=== PATIENT | male | born 1940 | race Caucasian/White ===

== ENCOUNTER 2019-08-15 16:57 | Emergency (ER) | payer MEDICARE ==
[2019-08-15 18:03] LABS: #Basophils 0.1 thou/uL (0.0-0.2); #Eosinphils 0.1 thou/uL (0.0-0.7); #Lymphocytes 1.5 thou/uL (1.20-3.40); #Monocytes 0.7 thou/uL (0.11-0.59); #Neutrophils 3.1 thou/uL (1.40-6.50); %Eosinophils 1.5 % (0.0-10.0); %Lymphocytes 27.4 % (21.0-51.0); %Monocytes 12.3 % (0.0-10.0); %Neutrophils 57.9 % (42.0-75.0); Hemoglobin 12.5 g/dL (14.0-18.0); Mean Corpuscular Hemoglobin 33.9 pg (27.0-31.0); Mean Corpuscular Volume 99.5 fL (78.0-98.0); Platelet Count 228 thou/uL (130-400); RBC Distribution Width 13.7 % (11.5-14.5); Red Blood Cell (RBC) Count 3.69 mill/uL (4.70-6.10); White Blood Cell (WBC) Count 5.3 thou/uL (4.8-10.8)
== END 2019-08-16 00:52 | disposition short-term general hospital (02) ==
LOC: ERS 16:57
DX: C78.7 Secondary malignant neoplasm of liver and intrahepatic bile duct (principal); E11.9 Type 2 diabetes mellitus without complications; Z87.891 Personal history of nicotine dependence
CPT/HCPCS: 36415; 85025; 99285

== ENCOUNTER 2020-04-07 16:42 | Inpatient (IN) | payer MEDICARE, OTHER ==
[~2020-04-07 16:42] MED LIST: Heparin 10,000 UNITS/ 10 ML VIAL ONE
[2020-04-07] MEDS ORDERED: methylPREDNISolone Sod Succ/PF 125 MG/2 ML VIAL ONE (17:16)
[2020-04-07] MEDS ORDERED: Furosemide 40 MG/4 ML VIAL ONE (17:16)
[2020-04-07] MEDS ORDERED: Albuterol Sulfate 2.5 mg/0.5 ml Neb ONE (17:17)
--- NOTE | 2020-04-07 17:43 | RAD ---
Exam: Chest one view HISTORY:Respiratory distress, starting 3 days ago. Diminished lung sounds Comparison: 04/06/2020 FINDINGS: Limited evaluation due to body habitus and portable technique Right-sided transvenous pacemaker terminates over the region right atrium and right ventricle. Cardiac silhouette:Cardiomegaly Aorta: Unremarkable Pulmonary vessels: Normal Costophrenic angles: Bilateral pleural effusions, right greater than left. LUNGS: Scattered interstitial and alveolar opacities in the lung parenchyma. Pneumothorax: Limited evaluation due to supine position. Osseous abnormalities: None IMPRESSION: 1. Possible congestive heart failure. Superimposed pneumonia and/or aspiration cannot be excluded. 2. Better evaluation of the 2 view chest radiograph is recommended. Limited evaluation the right para tracheal region
[2020-04-07 17:48] LABS: Hemoglobin 10.4 g/dL (14.0-18.0); Mean Corpuscular HGB CONC 31.5 g/dL (32.0-36.0); Mean Corpuscular Hemoglobin 33.3 pg (27.0-31.0); Platelet Count 125 thou/uL (130-400); RBC Distribution Width 19.1 % (11.5-14.5); Red Blood Cell (RBC) Count 3.12 mill/uL (4.70-6.10); White Blood Cell (WBC) Count 5.8 thou/uL (4.8-10.8)
[2020-04-07] MEDS ORDERED: cefTRIAXone\\ROCEPHIN 2 GM VIAL ONE (18:04)
[2020-04-07 18:08] LABS: Anisocytosis SLIGHT = 6-15 cells (100X) (0-5/hpf); Band 13 % (5-11); Burr Cells SLIGHT = 2-5 cells (100X) (0-1/hpf); Eosinophils 2 % (0-10); Lymphocytes 9 % (21-51); MDiff Complete? YES; Macrocytosis SLIGHT = 6-15 cells (100X) (0-5/hpf); Monocytes 10 % (0-10); Neutrophil 65 % (42-75); Nucleated RBC 2 % (0); Platelet Morphology Comment Appears Decreased; Poikilocytosis SLIGHT = 6-15 cells (100X) (0-5/hpf); Polychromasia SLIGHT = 2-3 cells (100X) (0-2/hpf); Reactive Lymphocytes 1 % (0-10); Target Cells SLIGHT = 2-5 cells (100X) (0-1/hpf)
[2020-04-07 18:14] LABS: ALT (SGPT) 63 U/L (8-55); AST (SGOT) 405 U/L (5-34); Albumin 1.7 g/dL (3.4-4.8); Alkaline Phosphatase 234 U/L (40-110); Anion Gap 16 mmol/L (10-20); BUN (Urea Nitrogen) 89 mg/dL (8.4-25.7); Bilirubin, Total 6.3 mg/dL (0.2-1.2); Calc. Creatinine Clearance 0 mL/min (70-130); Calcium 7.8 mg/dL (7.8-10.44); Carbon Dioxide 21 mmol/L (23-31); Chloride 99 mmol/L (98-107); Estimated GFR-MDRD 21; Globulin 3.2 g/dL (2.4-3.5); Glucose 103 mg/dL (83-110); Protein, Total 4.9 g/dL (5.8-8.1); Sodium 129 mmol/L (136-145)
[2020-04-07 18:21] LABS: Potassium 6.8 mmol/L (3.5-5.1)
[2020-04-07] MEDS ORDERED: Furosemide 20 MG/2 ML VIAL ONE (19:01)
[2020-04-07] MEDS ORDERED: Sodium Bicarb 50 MEQ/50 ML VIAL ONE (19:02)
[2020-04-07] MEDS ORDERED: Dextrose 50% Abboject 50 ML SYRINGE ONE (19:02)
[2020-04-07 19:04] LABS: Bilirubin 1+ (Negative); Blood, Urine Trace (Negative); Clarity Turbid (Clear); Glucose, Urine (Dipstick) Normal (Negative); Ketone, Urine Trace mg/dL (Negative); Leukocyte Negative Leu/uL (Negative); Nitrite Negative (Negative); Protein, Urine (Dipstick) 50 mg/dL (Neg-Trace); RBC/HPF 0-3 HPF (0-3); Specific Gravity, Urine 1.018 (1.002-1.036); Squamous Epithelial 0-3 HPF (0-3)
[2020-04-07] MEDS ORDERED: INSULIN REGULAR IN 0.9 % NACL 100 UNIT/100 ML BAG ONE (19:06)
[2020-04-07] MEDS ORDERED: Calcium Gluc 4.6 MEQ/10 ML (100 MG/ML) ONE (19:07)
[2020-04-07] MEDS ORDERED: Sodium Bicarb 50 MEQ/50 ML Abboject 8.4% SYRINGE ONE (19:07)
[2020-04-07] MEDS ORDERED: Insulin Regular 300 UNITS/3 ML VIAL ONE (19:09)
[2020-04-07 19:11] LABS: Bacteria/HPF None Seen HPF (None Seen); Transitional Epithelial 0-3 HPF (None Seen)
[2020-04-07 19:12] LABS: Calcium Oxalate Crystals Rare HPF (None Seen)
[2020-04-07] MEDS ORDERED: Vancomycin 1 GM/200 ML BAG ONE (19:37)
[2020-04-07] MEDS ORDERED: Acetaminophen 325 MG TAB PO PRN (19:41)
[2020-04-07] MEDS ORDERED: Guaifenesin DM 100-10/5 ML UDCUP PO PRN (19:41)
[2020-04-07] MEDS ORDERED: cloNIDine 0.1 MG TAB PO PRN (19:41)
[2020-04-07] MEDS ORDERED: Promethazine HCl 12.5 MG in Sodium Chloride 0.9% 50 ML IVPB PRN (19:41)
[2020-04-07] MEDS ORDERED: Ondansetron PF 4 MG/2 ML Vial IVP PRN (19:41)
[2020-04-07] MEDS ORDERED: hydrALAZINE 20 MG/ML VIAL SLOW IVP PRN (19:41)
[2020-04-07] MEDS ORDERED: Labetalol HCl 100 MG/20 ML VIAL SLOW IVP PRN (19:41)
--- NOTE | 2020-04-07 19:51 | PDOC.HHP ---
Hospitalist HPI - History of Present Illness Shortness of breath History of Present Illness: Patient is a 80 year old male with PMH CKD who presents to ED for shortness of breath and chest pain, sent here from [facility]. Patient reports worsening SOB x 3 days. EMS called last night, patient found to be hypotensive and hypoxic to 80s. Given a breathing treatment and placed on NRB. BP was 70s/40s. COVID test 3 days ago negative. In ED, labs concerning for K 6.8, Cr 12. Nephrology consulted, Dr Anaya recommended immediate HD, Dr Looney consulted for HD cath placement. Patient admitted to [facility], started on HD, required bipap before HD due to increased work of breathing. He did have some chest pain per ED notes but denies that now, CHF reported in history of chart review. Hospitalist ROS - Review of Systems Constitutional: reports: weakness, malaise. denies: fever, chills, sweats, other Eyes: denies: pain, vision change, conjunctivae inflammation, eyelid inflammation, redness, other ENT: denies: ear pain, ear discharge, nose pain, nose discharge, nose congestion, mouth pain, mouth swelling, throat pain, throat swelling, other Respiratory: reports: cough, shortness of breath. denies: dry, hemoptysis, SOB with excertion, pleuritic pain, sputum, wheezing, other Cardiovascular: reports: chest pain. denies: palpitations, orthopnea, paroxysmal noc. dyspnea, edema, light headedness, other Gastrointestinal: denies: nausea, vomiting, abdominal pain, diarrhea, constipation, melena, hematochezia, other Genitourinary: denies: dysuria, frequency, incontinence, hematuria, retention, other Musculoskeletal: denies: neck pain, shoulder pain, arm pain, back pain, hand pain, leg pain, foot pain, other Skin: reports: lesions (skin tears elbow). denies: rash, hudson, bruising, other Neurological: denies: weakness, numbness, incoordination, change in speech, confusion, seizures, other All other systems reviewed; all pertinent +/- noted in HPI/Subj - Medication Medications: reviewed, see ED documents for medication list Hospitalist History - Past Medical History Other Medical History: Flu vaccine up to date Tetanus not up to date Pneumococcal vaccine not up to date Notes: LUNG CANCER 2015, VOCAL CORD CANCER 2009, Past medical history includes cardiac history, Treated with a pacemaker, since 2019, Past medical history includes history of diabetes, Type II. LIVER TUMOR, COPD, DIABETIC PERIPHERAL NEUROPATHY, CKD, HYPERKALEMIA, HYPONATREMIA, HTN, OA, DECUBITS ULCER, SECOND DEGREE HEART BLOCK- MOBITZ II. - Past Surgical History Other Surgical History: BACK SX, KIDNEY STONE REMOVAL, LEFT KNEE REPLACEMENT 10 YEARS AGO. - Family History Family History: reports: no pertinent history - Social History Smoking Status: Former smoker Alcohol: reports: None Drugs: reports: none - Exam General - other findings: confused, no distress, on bipap Eye: PERRL, anicteric sclera ENT: normocephalic atraumatic, no oropharyngeal lesions, moist mucosa Neck: supple, symmetric, no JVD, no thyromegaly, no lymphadenopathy, no carotid bruit Heart: RRR, no murmur, no gallops, no rubs, normal peripheral pulses Respiratory: CTAB, no wheezes, no rales, normal chest expansion, no tachypnea, normal percussion, rhonchi, wheezes Gastrointestinal: soft, non-tender, non-distended, normal bowel sounds, no palpable masses, no hepatomegaly, no splenomegaly, no bruit Extremities: no cyanosis, no clubbing, no edema Skin: normal turgor, no lesions, no rashes Neurological: cranial nerve grossly intact, normal sensation to touch, no weakness, no focal deficits, no new deficit Musculoskeletal: normal tone, normal strength, no muscle wasting Psychiatric: normal affect, normal behavior, A&O x 3 Hospitalist Results - Labs Result Diagrams: 04/08/20 05:15 04/08/20 05:15 Lab results: WBC 5.8 thou/uL (4.8-10.8) 04/07/20 17:24 Hgb 10.4 g/dL (14.0-18.0) L 04/07/20 17:24 Hct 33.0 % (42.0-52.0) L 04/07/20 17:24 MCV 106.0 fL (78.0-98.0) H 04/07/20 17:24 Plt Count 125 thou/uL (130-400) L 04/07/20 17:24 Band Neuts % (Manual) 13 % (5-11) H 04/07/20 17:24 Sodium 129 mmol/L (136-145) L 04/07/20 17:24 Potassium 6.8 mmol/L (3.5-5.1) H* 04/07/20 17:24 Chloride 99 mmol/L (98-107) 04/07/20 17:24 Carbon Dioxide 21 mmol/L (23-31) L 04/07/20 17:24 BUN 89 mg/dL (8.4-25.7) H 04/07/20 17:24 Creatinine 2.96 mg/dL (0.7-1.3) H 04/07/20 17:24 Glucose 103 mg/dL (83-110) 04/07/20 17:24 Lactic Acid 1.7 mmol/L (0.5-2.2) 04/07/20 17:24 Calcium 7.8 mg/dL (7.8-10.44) 04/07/20 17:24 Total Bilirubin 6.3 mg/dL (0.2-1.2) H 04/07/20 17:24 AST 405 U/L (5-34) H 04/07/20 17:24 ALT 63 U/L (8-55) H 04/07/20 17:24 Alkaline Phosphatase 234 U/L (40-110) H 04/07/20 17:24 Troponin I 0.016 ng/mL (< 0.028) 04/07/20 17:24 B-Natriuretic Peptide 1374.1 pg/mL (0-100) H 04/07/20 17:24 Serum Total Protein 4.9 g/dL (5.8-8.1) L 04/07/20 17:24 Albumin 1.7 g/dL (3.4-4.8) L 04/07/20 17:24 Urine Ketones Trace mg/dL (Negative) A 04/07/20 18:40 Urine Blood Trace (Negative) A 04/07/20 18:40 Urine Nitrite Negative (Negative) 04/07/20 18:40 Ur Leukocyte Esterase Negative Korina/uL (Negative) 04/07/20 18:40 Urine RBC 0-3 HPF (0-3) 04/07/20 18:40 Urine WBC 4-6 HPF (0-3) A 10/05/20 18:40 Ur Squamous Epith Cells 0-3 HPF (0-3) 04/07/20 18:40 Urine Bacteria None Seen HPF (None Seen) 04/07/20 18:40 Additional comment: VITAL SIGNS Mon Apr 07, 2020 20:30 DEVIN Sarah, Sofya BP: 107/49 MAP: 68 Pulse: 80 Resp: 17 O2 sat: 100 on (Non Rebreather) Time: 04/07/2020 20:30. - EKG Interpretation EK bpm, v paced. QTc 538. no acute ST changes. peaked t waves. Hospitalist H&P A/P - Plan Plan: Patient is a 80 year old male with PMH CKD who presents to ED for shortness of breath and chest pain, [facility]. # acute renal failure on CKD # hyperkalemia - due to renal failure # COPD exacerbation and possible pneumonia # CHF exacerbation - admit to IMCU - BIPAP as needed until fluid removed - continue vancomycin/cefepime - consult pulmonary, nephrology, appreciate expertise - dopamine until more stable, getting intermittent low BPs - continue nebs/steroids - echo - follow cultures - started on HD last night, after access placed by surgery, K improved now, follow up labs.
[2020-04-07] MEDS ORDERED: Furosemide 100 MG/10 ML VIAL SLOW IVP SCH (20:00)
[2020-04-07] MEDS ORDERED: Lidocaine 1% w/Epinephrine 1:100K 20 ML VIAL ONE (20:08)
--- NOTE | 2020-04-07 20:42 | CON ---
DATE OF CONSULTATION: REASON FOR CONSULTATION: Hyperkalemia. HISTORY OF PRESENT ILLNESS: This is a very pleasant 80-year-old gentleman, who is on BiPAP right now, had had a few days of progressive swelling all over his body with increasing dyspnea. His potassium was 6.2 early this morning and around 5:30 p.m., it was 6.8, so I was consulted for further evaluation and workup. The patient is very somnolent and can give no detailed history. The patient has been given treatment for hyperkalemia. PAST MEDICAL HISTORY: Significant for liver cancer with lung cancer and liver biopsy was not performed. The patient has received immunotherapy and chemotherapy. The patient has had massive weight loss. Had a history of pacemaker, diabetes mellitus, chronic debility, history of kidney stone, and history of left knee replacement. SOCIOECONOMIC HISTORY: No alcohol or drug abuse. FAMILY HISTORY: Negative for ESRD. ALLERGIES: REVIEWED. REVIEW OF SYSTEMS: A 15-point review of system could not be performed due to the patient is very somnolent. PHYSICAL EXAMINATION: GENERAL: The patient is somnolent. VITAL SIGNS: Afebrile, pulse 94, breathing at 16, blood pressure was 127/61. At the time of my examination, the blood pressure was in the 90 systolic and 40s diastolic. HEENT: Head normocephalic and atraumatic. Eyes intact, no ulcers. Nose intact, no ulcers. Ears intact, no ulcers. Neck: Supple. No JVD. Chest: Symmetrical and clear. Cardiovascular: Shows S1 and S2, no rub, no murmur. Gastrointestinal: Abdomen is soft, bowel sounds positive. Extremities: Show no ulcers. The patient has 4+ edema including scrotal edema. Skin: Shows no rash or petechiae. Musculoskeletal: Shows no joint swelling or stiffness. Genitourinary: Shows no Carcamo or CVA tenderness. Neurologic: Motor intact. Cranial nerves intact. LABORATORY DATA: Reviewed. ASSESSMENT AND PLAN: Acute kidney injury with chronic kidney disease with multifactorial in the setting of hypertension and congestive heart failure. I will plan to do urgent dialysis. Hyperkalemia, plan dialysis. Anemia, stable. Metabolic acidosis, plan dialysis. Overall prognosis is poor. I have discussed that with the family and they have agreed for renal replacement therapy. is a possibility. Job ID: [id number]
[2020-04-07 22:16] LABS: HBSAg Index 0.19 S/CO (0-0.99); Hep B Surf Ag Non-Reactive S/CO (NonReactive)
[2020-04-07] MEDS ORDERED: Albumin 25% 100 ML ONE (22:53)
[2020-04-07] MEDS ORDERED: Albumin 25% 25 GM/100 ML BOT IVPB SCH (23:00)
[2020-04-07] MEDS: Heparin 5,000 UNITS/ML VIAL SC SCH (23:25)
[2020-04-08] MEDS ORDERED: DOPamine 400 MG/D5W 250 ML 250 ML IVPB SCH (00:15)
[2020-04-08] MEDS ORDERED: HOLD VANCOMYCIN FOR LEVEL >20 FS SCH (00:30)
[2020-04-08] MEDS ORDERED: Vancomycin HCl 1.25 GM in Sodium Chloride 0.9% 250 ML 250 ML IVPB SCH (00:30)
[2020-04-08] MEDS ORDERED: Vancomycin HCl 1.5 GM in Sodium Chloride 0.9% 250 ML 300 ML IVPB SCH (00:30)
[2020-04-08] MEDS ORDERED: Vancomycin HCl 750 MG in Sodium Chloride 0.9% 250 ML 250 ML IVPB SCH (00:30)
[2020-04-08] MEDS ORDERED: Vancomycin 1 GM in Premix Bag 1 BAG IVPB SCH (00:30)
[2020-04-08] MEDS ORDERED: Bacteriostatic Water 30 ML VIAL FS PRN (00:30)
[2020-04-08] MEDS: Cefepime 1 GM in Sodium Chloride 0.9% 100 ML IVPB SCH ×2 (00:49→15:22)
--- NOTE | 2020-04-08 01:24 | OP ---
DATE OF PROCEDURE: 04/07/2020 PREOPERATIVE DIAGNOSIS: Acute renal failure. POSTOPERATIVE DIAGNOSIS: Acute renal failure. PROCEDURE PERFORMED: Right femoral Trialysis dialysis catheter. ANESTHESIA: Local. ESTIMATED BLOOD LOSS: Minimal. COMPLICATION: None. SPECIMEN: None. DESCRIPTION OF PROCEDURE: The right groin was shaved, prepped, and draped in a sterile fashion. Local anesthetic was infiltrated over the right femoral vein. Femoral vein was cannulated using a Seldinger needle. Wire was passed with no tension. A small andree was made at the wire entrance site. The wire was used as a guide to dilate the femoral vein. The Trialysis catheter was threaded to its fullest extent, sewn to the skin of the groin using the enclosed nylon suture. All ports were flushed and anshu blood without difficulty. They were each flushed with a heparin flush. Sterile dressings were placed. The patient tolerated the procedure well. Job ID: [id number]
[2020-04-08] MEDS: methylPREDNISolone Sod Succ 40 MG VIAL IVP SCH ×3 (05:14→21:30)
[2020-04-08 06:01] LABS: Anion Gap 17 mmol/L (10-20); BUN (Urea Nitrogen) 60 mg/dL (8.4-25.7); Calc. Creatinine Clearance 39 mL/min (70-130); Carbon Dioxide 23 mmol/L (23-31); Chloride 97 mmol/L (98-107); Estimated GFR-MDRD 26; Glucose 149 mg/dL (83-110); Magnesium 2.3 mg/dL (1.6-2.6); Phosphorus 5.7 mg/dL (2.3-4.7); Potassium 5.4 mmol/L (3.5-5.1); Sodium 132 mmol/L (136-145)
[2020-04-08 06:13] LABS: Band 18 % (5-11); Hemoglobin 9.8 g/dL (14.0-18.0); Hypochromia SLIGHT = 6-15 cells (100X) (0-5/hpf); Lymphocytes 7 % (21-51); MDiff Complete? YES; Macrocytosis SLIGHT = 6-15 cells (100X) (0-5/hpf); Mean Corpuscular HGB CONC 31.4 g/dL (32.0-36.0); Mean Corpuscular Hemoglobin 32.9 pg (27.0-31.0); Mean Platelet Volume 10.6 fL (7.4-10.4); Monocytes 10 % (0-10); Neutrophil 65 % (42-75); Platelet Count 107 thou/uL (130-400); Platelet Morphology Comment Appears Decreased; RBC Distribution Width 18.8 % (11.5-14.5); Red Blood Cell (RBC) Count 2.96 mill/uL (4.70-6.10); Target Cells SLIGHT = 2-5 cells (100X) (0-1/hpf); White Blood Cell (WBC) Count 6.3 thou/uL (4.8-10.8)
[2020-04-08] MEDS ORDERED: Norepinephrine 8 MG/0.9% NS 250 ML IVPB SCH (08:30)
--- NOTE | 2020-04-08 08:33 | PDOC.HOSPP ---
- Subjective Encounter Date: 04/08/20 Encounter Time: 08:31 Subjective: on BIPAP, responds weakly - Objective Vital Signs & Weight: Vital Signs (12 hours) Temp Pulse Resp Pulse Ox 04/08/20 07:26 98.6 F 04/08/20 06:47 60 12 98 04/08/20 03:13 97.1 F L 04/08/20 02:09 92 16 99 04/07/20 23:05 100 04/07/20 22:51 75 12 99 04/07/20 22:47 75 12 99 04/07/20 22:28 96.5 F L Weight Weight 240 lb 4.862 oz Most Recent Monitor Data Heart Rate from ECG 60 NIBP 103/38 NIBP BP-Mean 59 Respiration from ECG 17 SpO2 96 I&O: 04/07/20 04/08/20 04/09/20 06:59 06:59 06:59 Intake Total 230 Output Total 1000 Balance -770 Result Diagrams: 04/08/20 05:15 04/08/20 05:15 Hospitalist ROS - Medication Medications: Active Medications Generic Name Dose Route Start Last Admin Trade Name Freq PRN Reason Stop Dose Admin Albuterol/Ipratropium 3 ml 04/08/20 07:00 04/08/20 06:47 Ipratropium/Albuterol Sulfate 3 Ml Neb NEB 3 ml [id number] RAUL Administration Heparin Sodium (Porcine) 5,000 units 04/07/20 21:00 04/07/20 23:25 Heparin 5,000 Units/Ml Vial SC Not Given BID RAUL Cefepime HCl 1 gm/ Sodium 100 mls @ 200 mls/hr 04/08/20 01:00 04/08/20 00:49 Chloride IVPB 100 mls 0100,1300 RAUL Administration Methylprednisolone Sodium Succinate 60 mg 04/08/20 06:00 04/08/20 05:14 Methylprednisolone Sod Succ 40 Mg Vial IVP 60 mg Q8HR RAUL Administration Sodium Chloride 10 ml 04/07/20 21:00 04/07/20 23:26 Flush - Normal Saline 10 Ml Syringe IVF 10 ml Q12HR RAUL Administration - Exam Neck: no JVD Heart: RRR, no murmur Respiratory - other findings: adquate ant BS, rales laterally Gastrointestinal: tender to palpation, distended, diminished bowl sounds Extremities: no edema Hosp A/P (1) Hypotension Status: Acute Qualifiers: Hypotension type: unspecified hypotension type Qualified Code(s): I95.9 - Hypotension, unspecified (2) Acute respiratory failure with hypoxia Code(s): J96.01 - ACUTE RESPIRATORY FAILURE WITH HYPOXIA Status: Acute (3) Bilateral pleural effusion Code(s): J90 - PLEURAL EFFUSION, NOT ELSEWHERE CLASSIFIED Status: Acute (4) Liver tumor Status: Chronic (5) Acute renal failure Status: Acute Qualifiers: Acute renal failure type: unspecified Qualified Code(s): N17.9 - Acute kidney failure, unspecified (6) DM2 (diabetes mellitus, type 2) Status: Acute Qualifiers: Diabetes mellitus ferry terminal agent insulin use: without skilled nursing use Diabetes mellitus complication status: with kidney complications Diabetes mellitus complication detail: with chronic kidney disease - Plan transfer from [facility] change BP support to levofed on BIPAP, stat ABG hepatic failure- PT/PTT/ammonia level urgent intensivest consult prognosis guarded
[2020-04-08 08:45] LABS: Actual Bicarbonate (HCO3a) 23.3 mEq/L (22-28); Base Excess (BEa) -0.6 mEq/L (-2.0 to +3.0); CO2 Tension 35.1 mmHg (35.0-45.0); Calcium, Ionized (arterial) 1.06 mmol/L (1.12-1.30); Carboxyhemoglobin (COHb) 0.3 gm% (0.0-3.0); Hemoglobin (Hb) 10.6 g/dL (14.0-18.0); O2 Tension (PaO2), arterial 62.8 mmHg (> 70.0); Potassium - ABG Lab 5.61 mmol/L (3.70-5.30); pH, Arterial 7.44 (7.35-7.45)
[2020-04-08 08:49] LABS: ALV-art Gradient 142.875 mmHg (0-20); Puncture Site LRA
[2020-04-08] MEDS: Furosemide 100 MG/10 ML VIAL SLOW IVP SCH ×2 (09:00→15:30)
[2020-04-08 09:07] LABS: INR-International Normal Ratio 2.2; Prothrombin Time 24.5 sec (12.0-14.7)
[2020-04-08 09:08] LABS: PTT 84.6 sec (22.9-36.1)
[2020-04-08] MEDS: Heparin 5,000 UNITS/ML VIAL SC SCH ×2 (09:25→21:30)
[2020-04-08] MEDS: Famotidine 20 MG TAB PO SCH (09:30)
[2020-04-08 16:28] LABS: SARS-CoV-2 MS2 Positive; SARS-CoV-2 N Gene Negative; SARS-CoV-2 S Gene Negative; SARS-CoV-2 by NAA Not Detected (NotDetected); SARS-CoV-2 orf1ab Negative
[2020-04-08] MEDS ORDERED: Dextrose 50% Abboject 50 ML SYRINGE SLOW IVP PRN (16:45)
[2020-04-08] MEDS ORDERED: Dextrose 5% in Water 1,000 ML IV PRN (16:45)
[2020-04-08] MEDS ORDERED: HumaLOG 300 UNITS/3 ML VIAL SC PRN (16:45)
[2020-04-08] MEDS ORDERED: Morphine 4 MG/ML VIAL SLOW IVP PRN (16:49)
--- NOTE | 2020-04-08 17:12 | CON ---
DATE OF CONSULTATION: 04/08/2020 35 minutes of critical care time. REASON FOR CONSULTATION: Hypotension, acute renal failure. HISTORY OF PRESENT ILLNESS: The patient is a 80-year-old male, who gets his care in [place] through [facility]. He is currently hospitalized with acute renal failure, acute respiratory failure, and hyperkalemia. He has hypotension, has had to be placed on Levophed drip. He did have dialysis last night for the hyperkalemia, but I do not think any significant fluid was pulled off because of his blood pressure. PAST MEDICAL HISTORY: 1. He has liver cancer. 2. He has had lung cancer in the past. 3. 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 He has been taking immunotherapy in [place]. He has had chemotherapy and radiation in the past for his lung cancer. He has had profound weight loss. 4. He has a pacemaker. 5. COPD. 6. Secondary heart block. 7. Osteoarthritis. FAMILY MEDICAL HISTORY: Unremarkable. PAST SURGICAL HISTORY: Back surgery, kidney stone removal, left knee replacement. SOCIAL HISTORY: Former smoker. Does not consume alcohol. Does not use illicit drugs. MEDICATIONS PRIOR TO ADMISSION: 1. Glipizide. 2. Spironolactone. 3. Furosemide. 4. Atorvastatin. 5. Enoxaparin. 6. Insulin. 7. Levothyroxine. 8. Metoprolol. 9. Pantoprazole. 10. Tamsulosin. 11. Ethylene glycol. 12. Coenzyme Q10. 13. Simethicone. 14. Ventolin. 15. Trazodone. 16. Tramadol. 17. Catapres. 18. Loperamide. 19. Benzocaine throat lozenges. 20. Guaifenesin DM. CURRENT INPATIENT MEDICATIONS: Reviewed, see active medications in chart. PHYSICAL EXAMINATION: VITAL SIGNS: Pulse 60 and paced; blood pressure 106/39, on Levophed; O2 saturation 100%; and respiratory rate 15. GENERAL: The patient is wearing a BiPAP and appears to be in some respiratory discomfort. HEENT: Otherwise, unremarkable. NECK: No JVD. LUNGS: Crackles bilaterally. CARDIOVASCULAR: S1 and S2, paced. ABDOMEN: Obese, protuberant. EXTREMITIES: Numerous sores over his arms. LABORATORY DATA: Sodium 132, potassium 5.4, chloride 97, CO2 of 23, BUN 60, creatinine 2.4, glucose 149. White blood cell count 6.3, hematocrit 31, and platelet count 107. INR is 2.2. His chest x-ray shows diffuse bilateral infiltrates. COVID test does not appear on labs, but may have been done at an outside facility. ASSESSMENT: The patient is presenting with multiple organ failure including respiratory failure with bilateral pulmonary infiltrates, renal failure, and hemodynamic shock. He could very well have systemic infection. Also, he could have the effects of the cancer with metastasis and be adrenal insufficient. PLAN: This patient's odds of recovering are quite low. He needs dialysis, but does not have a blood pressure to sustain fluid removal. He is being supported with Levophed for the time being. He is also on antibiotics. I had a rajinder discussion with the patient's telling her that the patient is dying and that aggressive care is unlikely change that outcome. I am encouraging DNR on this patient. We will follow with you. Job ID: [id number]
--- NOTE | 2020-04-08 20:06 | PRG ---
DATE OF SERVICE: 04/08/2020 SUBJECTIVE: A 80-year-old gentleman, being seen for acute kidney injury requiring dialysis. The patient remains on oxygen, cannot answer any simple questions. On examination, the patient is resting. PHYSICAL EXAMINATION: General: The patient is awake and alert. Vital Signs: Afebrile, pulse 60, breathing at 16, blood pressure 111/41. HEENT: Head normocephalic and atraumatic. Eyes intact, no ulcers. Nose intact, no ulcers. Ears intact, no ulcers. Neck: Supple. No JVD. Chest: Symmetrical and clear. Cardiovascular: Shows S1 and S2, no rub, no murmur. Gastrointestinal: Abdomen is soft, bowel sounds positive. Extremities: Show no edema or ulcers. Skin: Shows no rash or petechiae. Musculoskeletal: Shows no joint swelling or stiffness. Genitourinary: Shows no Carcamo or CVA tenderness. Neurologic: Motor intact. Cranial nerves intact. LABORATORY DATA: Showed potassium 5.4, sodium 132, creatinine 2.4. ASSESSMENT: 1. Acute kidney injury with chronic kidney disease and hyperkalemia. The patient was hypotensive throughout dialysis. Risks versus benefits of dialysis were again discussed with the family and the family refused to get dialysis. 2. Hyperkalemia. See plan above. 3. Anemia, stable. Overall prognosis is poor. The patient has multiorgan failure. I agree with palliative Care consult. I will sign off. Please reconsult as needed. Job ID: [id number]
[2020-04-08] MEDS ORDERED: FLU VACC QS2020-21(65YR UP)/PF 240 MCG/0.7 ML SYRINGE IM ONE (21:00)
[2020-04-09] MEDS: Cefepime 1 GM in Sodium Chloride 0.9% 100 ML IVPB SCH ×2 (02:20→12:59)
[2020-04-09 05:58] LABS: Anion Gap 19 mmol/L (10-20); BUN (Urea Nitrogen) 70 mg/dL (8.4-25.7); Calc. Creatinine Clearance 29 mL/min (70-130); Calcium 7.7 mg/dL (7.8-10.44); Carbon Dioxide 23 mmol/L (23-31); Chloride 98 mmol/L (98-107); Estimated GFR-MDRD 19; Glucose 115 mg/dL (83-110); Magnesium 2.3 mg/dL (1.6-2.6); Phosphorus 6.1 mg/dL (2.3-4.7); Potassium 5.7 mmol/L (3.5-5.1); Sodium 134 mmol/L (136-145)
[2020-04-09 05:59] LABS: Band 20 % (5-11); Hemoglobin 11.7 g/dL (14.0-18.0); Lymphocytes 8 % (21-51); MDiff Complete? YES; Mean Corpuscular HGB CONC 31.3 g/dL (32.0-36.0); Mean Corpuscular Hemoglobin 32.8 pg (27.0-31.0); Mean Platelet Volume 9.9 fL (7.4-10.4); Metamyelocyte 1 % (0-0); Monocytes 5 % (0-10); Neutrophil 66 % (42-75); Nucleated RBC 2 % (0); Platelet Count 98 thou/uL (130-400); Platelet Morphology Comment Appears Decreased; RBC Distribution Width 19.4 % (11.5-14.5); Red Blood Cell (RBC) Count 3.55 mill/uL (4.70-6.10); Target Cells SLIGHT = 2-5 cells (100X) (0-1/hpf); White Blood Cell (WBC) Count 5.7 thou/uL (4.8-10.8)
[2020-04-09 06:04] LABS: Vancomycin, Random 6.5 ug/mL (See Comment)
[2020-04-09 06:46] VITALS: BMI 35.9
[2020-04-09] MEDS: methylPREDNISolone Sod Succ 40 MG VIAL IVP SCH ×3 (07:24→20:15)
--- NOTE | 2020-04-09 07:36 | PRG ---
DATE OF SERVICE: 04/09/2020 SUBJECTIVE: The patient remains in the ICU on noninvasive ventilation and Levophed drip. He looks depressed and miserable. He said he did not sleep well last night. OBJECTIVE: VITAL SIGNS: Temperature is 96.8, pulse 81, blood pressure 113/45, and O2 saturation 99%. He is currently on 8 mcg/minute of Levophed. HEENT: Remarkable for periorbital edema. NECK: No JVD. LUNGS: Coarse breath sounds. CARDIOVASCULAR: S1 and S2. Regular. ABDOMEN: Protuberant. EXTREMITIES: 3+ edema throughout. LABORATORY DATA: White blood cell count 5.7, hematocrit 37.3, platelet count 98. Sodium 134, potassium 5.7, chloride 98, CO2 of 23, BUN 70, creatinine 3.2, and glucose 115. ASSESSMENT: 1. Acute on chronic renal failure. 2. Hypotension. 3. Hyperkalemia. 4. Some type of liver cancer. 5. History of lung cancer. PLAN: The patient is not deemed a good candidate for dialysis based on comorbidities. I discussed with the family and they were amenable to change the patient's code status DNR yesterday. Now, I would focus on comfort measures, i.e., stopping the BiPAP and stopping the vasopressors. Job ID: [id number]
[2020-04-09] MEDS: Heparin 5,000 UNITS/ML VIAL SC SCH ×2 (08:31→19:38)
[2020-04-09] MEDS: Famotidine 20 MG TAB PO SCH (08:31)
--- NOTE | 2020-04-09 08:48 | PDOC.HOSPP ---
- Subjective Encounter Date: 04/09/20 Encounter Time: 08:45 Subjective: flat affect, on BIPAP - Objective Vital Signs & Weight: Vital Signs (12 hours) Temp Pulse Resp Pulse Ox 04/09/20 07:51 87 23 H 100 04/09/20 07:50 84 22 H 100 04/09/20 04:00 96.8 F L 04/09/20 00:25 60 20 98 04/09/20 00:00 97.0 F L 04/08/20 21:00 96.7 F L Weight Weight 242 lb 4.608 oz Most Recent Monitor Data Heart Rate from ECG 86 NIBP 116/50 NIBP BP-Mean 72 Respiration from ECG 20 SpO2 100 I&O: 04/08/20 04/09/20 04/10/20 06:59 06:59 06:59 Intake Total 230 349.4 Output Total 1000 10 0 Balance -770 339.4 0 Result Diagrams: 04/09/20 05:00 04/09/20 05:00 Additional Labs: Accuchecks 04/09/20 04/08/20 04/08/20 00:55 21:45 16:13 POC Glucose 114 H 113 H 134 H Hospitalist ROS - Medication Medications: Active Medications Generic Name Dose Route Start Last Admin Trade Name Freq PRN Reason Stop Dose Admin Albuterol/Ipratropium 3 ml 04/08/20 07:00 04/09/20 07:50 Ipratropium/Albuterol Sulfate 3 Ml Neb NEB 3 ml [id number] RAUL Administration Famotidine 20 mg 04/08/20 09:00 04/09/20 08:31 Famotidine 20 Mg Tab PO Not Given DAILY RAUL Furosemide 80 mg 04/08/20 09:00 04/08/20 15:30 Furosemide 100 Mg/10 Ml Vial SLOW IVP 80 mg DAILY RAUL Administration Heparin Sodium (Porcine) 5,000 units 04/07/20 21:00 04/09/20 08:31 Heparin 5,000 Units/Ml Vial SC Not Given BID RAUL Cefepime HCl 1 gm/ Sodium 100 mls @ 200 mls/hr 04/08/20 01:00 04/09/20 02:20 Chloride IVPB 100 mls 0100,1300 RAUL Administration Methylprednisolone Sodium Succinate 60 mg 04/08/20 06:00 04/09/20 07:24 Methylprednisolone Sod Succ 40 Mg Vial IVP 60 mg Q8HR RAUL Administration Sodium Chloride 10 ml 04/07/20 21:00 04/09/20 08:31 Flush - Normal Saline 10 Ml Syringe IVF 10 ml Q12HR RAUL Administration - Exam Neck: no JVD Heart: RRR Respiratory - other findings: coarse BS, diffuse rhonchi Gastrointestinal: distended, diminished bowl sounds Extremities: 1+ LE edema Hosp A/P (1) Hypotension Status: Acute Qualifiers: Hypotension type: unspecified hypotension type Qualified Code(s): I95.9 - Hypotension, unspecified (2) Acute respiratory failure with hypoxia Code(s): J96.01 - ACUTE RESPIRATORY FAILURE WITH HYPOXIA Status: Acute (3) Bilateral pleural effusion Code(s): J90 - PLEURAL EFFUSION, NOT ELSEWHERE CLASSIFIED Status: Acute (4) Liver tumor Status: Chronic (5) Acute renal failure Status: Acute Qualifiers: Acute renal failure type: unspecified Qualified Code(s): N17.9 - Acute kidney failure, unspecified (6) DM2 (diabetes mellitus, type 2) Status: Acute Qualifiers: Diabetes mellitus snf insulin use: without termite control technician use Diabetes mellitus complication status: with kidney complications Diabetes mellitus complication detail: with chronic kidney disease (7) Hepatic failure Status: Acute - Plan transfer from [facility] change BP support to levofed on BIPAP, stat ABG hepatic failure- wih coagulopathy prognosis guarded
[2020-04-09] MEDS ORDERED: Vancomycin 1.5 GRAM/300 ML BAG 1.5 GM in Premix Bag 1 BAG IVPB SCH (10:00)
[2020-04-09] MEDS: Furosemide 100 MG/10 ML VIAL SLOW IVP SCH (11:57)
[2020-04-10] MEDS: Cefepime 1 GM in Sodium Chloride 0.9% 100 ML IVPB SCH (00:54)
[2020-04-10 06:17] VITALS: TEMP 97.7
[2020-04-10] MEDS: methylPREDNISolone Sod Succ 40 MG VIAL IVP SCH (06:26)
--- NOTE | 2020-04-10 07:54 | PDOC.HOSPP ---
- Subjective Encounter Date: 04/10/20 Encounter Time: 07:53 Subjective: agonal respirations - Objective Vital Signs & Weight: Vital Signs (12 hours) Temp Pulse Resp BP Pulse Ox 04/10/20 04:00 97.7 F 63 20 100/54 L 95 04/10/20 00:00 97.5 F L 82 20 104/51 L 98 04/09/20 20:34 82 22 H 98 04/09/20 20:00 97.3 F L 81 20 99/50 L 92 L Weight Weight 242 lb 4.608 oz Most Recent Monitor Data Heart Rate from ECG 86 NIBP 111/46 NIBP BP-Mean 67 Respiration from ECG 19 SpO2 100 I&O: 04/09/20 04/10/20 04/11/20 06:59 06:59 06:59 Intake Total 349.4 429 Output Total 10 70 Balance 339.4 359 Result Diagrams: 04/09/20 05:00 04/09/20 05:00 Additional Labs: Accuchecks 04/09/20 08:56 POC Glucose 101 H Hospitalist ROS - Medication Medications: Active Medications Generic Name Dose Route Start Last Admin Trade Name Freq PRN Reason Stop Dose Admin Albuterol/Ipratropium 3 ml 04/07/20 19:41 04/09/20 20:34 Ipratropium/Albuterol Sulfate 3 Ml Neb NEB 3 ml [id number] PRN Administration SOB &/or Wheezing Albuterol/Ipratropium 3 ml 04/08/20 07:00 04/09/20 19:29 Ipratropium/Albuterol Sulfate 3 Ml Neb NEB Not Given [id number] RAUL Famotidine 20 mg 04/08/20 09:00 04/09/20 08:31 Famotidine 20 Mg Tab PO Not Given DAILY RAUL Heparin Sodium (Porcine) 5,000 units 04/07/20 21:00 04/09/20 19:38 Heparin 5,000 Units/Ml Vial SC Not Given BID RAUL Cefepime HCl 1 gm/ Sodium 100 mls @ 200 mls/hr 04/08/20 01:00 04/10/20 00:54 Chloride IVPB 100 mls 0100,1300 RAUL Administration Methylprednisolone Sodium Succinate 60 mg 04/08/20 06:00 04/10/20 06:26 Methylprednisolone Sod Succ 40 Mg Vial IVP 60 mg Q8HR RAUL Administration Sodium Chloride 10 ml 04/07/20 21:00 04/09/20 20:15 Flush - Normal Saline 10 Ml Syringe IVF 10 ml Q12HR RAUL Administration - Exam General - other findings: unresponsive Neck: no JVD Heart: RRR Respiratory - other findings: minimal BS Gastrointestinal: soft, distended, diminished bowl sounds Extremities: 2+ LE edema Hosp A/P (1) Hypotension Status: Acute Qualifiers: Hypotension type: unspecified hypotension type Qualified Code(s): I95.9 - Hypotension, unspecified (2) Acute respiratory failure with hypoxia Code(s): J96.01 - ACUTE RESPIRATORY FAILURE WITH HYPOXIA Status: Acute (3) Bilateral pleural effusion Code(s): J90 - PLEURAL EFFUSION, NOT ELSEWHERE CLASSIFIED Status: Acute (4) Liver tumor Status: Chronic (5) Acute renal failure Status: Acute Qualifiers: Acute renal failure type: unspecified Qualified Code(s): N17.9 - Acute kidney failure, unspecified (6) DM2 (diabetes mellitus, type 2) Status: Acute Qualifiers: Diabetes mellitus fpc insulin use: without fpc use Diabetes mellitus complication status: with kidney complications Diabetes mellitus complication detail: with chronic kidney disease (7) Hepatic failure Status: Acute - Plan agonal, called
[2020-04-10 08:22] VITALS: BP 79/42
[2020-04-10 08:24] LABS: Band 29 % (5-11); Hemoglobin 9.9 g/dL (14.0-18.0); Hypochromia SLIGHT = 6-15 cells (100X) (0-5/hpf); Lymphocytes 5 % (21-51); Mean Corpuscular HGB CONC 31.5 g/dL (32.0-36.0); Mean Corpuscular Hemoglobin 33.9 pg (27.0-31.0); Mean Platelet Volume 11.2 fL (7.4-10.4); Metamyelocyte 1 % (0-0); Platelet Count 101 thou/uL (130-400); Polychromasia SLIGHT = 2-3 cells (100X) (0-2/hpf); RBC Distribution Width 19.6 % (11.5-14.5); Reactive Lymphocytes 15 % (0-10); White Blood Cell (WBC) Count 8.4 thou/uL (4.8-10.8)
[2020-04-10 08:25] LABS: Nucleated RBC 2 % (0)
[2020-04-10 09:35] LABS: Anion Gap 19 mmol/L (10-20); BUN (Urea Nitrogen) 83 mg/dL (8.4-25.7); Calc. Creatinine Clearance 26 mL/min (70-130); Calcium 7.6 mg/dL (7.8-10.44); Carbon Dioxide 20 mmol/L (23-31); Chloride 98 mmol/L (98-107); Estimated GFR-MDRD 16; Glucose 103 mg/dL (83-110); Magnesium 2.5 mg/dL (1.6-2.6); Phosphorus 8.2 mg/dL (2.3-4.7); Potassium 6.5 mmol/L (3.5-5.1); Sodium 130 mmol/L (136-145)
[2020-04-10] MEDS ORDERED: Vancomycin 1 GM in Premix Bag 1 BAG IVPB SCH (10:00)
[2020-04-10] MEDS: Famotidine 20 MG TAB PO SCH (10:15)
[2020-04-10] MEDS: Heparin 5,000 UNITS/ML VIAL SC SCH (10:16)
--- NOTE | 2020-04-10 15:10 | PQF ---
CLINICAL DOCUMENTATION CLARIFICATION FORM: Dear Date: 04/10/2020 [id number] Please exercise your independent, professional judgment in responding to the clarification form. Clinical indicators are provided on the bottom of this form for your review. Please check appropriate box(es): CONGESTIVE HEART FAILURE: A. ACUITY [ ] Acute [ ] Acute on Chronic B. TYPE: [ ] Systolic / HFrEF [ ] Diastolic / HFpEF [ ] Combined Systolic / Diastolic [ x ] Other diagnosis _bilat pleural effusions due to hepatic failure [ ] Unable to determine In addition, please specify: Present on Admission (POA): [ x ] Yes [ ] No [ ] Unable to determine For continuity of documentation, please document condition throughout progress notes and discharge summary. Thank You. To be completed by CDI/Coding staff for physician review: CLINICAL INDICATORS - SIGNS / SYMPTOMS / LABS / RESULTS AND LOCATION IN EMR BNP (04/07) 1374.1 CXR impression: possible congestive heart failure. Superimposed pneumonia and / or aspiration cannot be excluded (04/07) H&P CHF reported in history of chart review, A/P: CHF exacerbation( [facility]/ 04/07) PN: Bilateral pleural effusion, agonal, called ([facility]/04/10) RISKS FACTORS / RESULTS AND LOCATION IN EMR Advanced age( 80), hx of CHF ( H&P/ [facility]) 04/08 TREATMENTS / RESULTS AND LOCATION IN EMR Supplemental oxygen (04/07 present) Lasix IVP (ED) Thank You! CDS Signature: Naheed Tapia RN Phone #: [phone] Date: 21/02/2020 This is a permanent part of the Medical Record [facility]
--- NOTE | 2020-04-11 08:31 | DIS ---
DATE OF ADMISSION: 04/07/2020 DATE OF DISCHARGE: 04/10/2020 PRIMARY CARE PROVIDER: Out of town physician. DATE AND TIME OF : 04/10/2020 at 2:05 p.m. FINAL DIAGNOSES: Acute respiratory failure with respiratory arrest, acute renal failure, chronic hepatic failure, liver tumor, bilateral pleural effusions, diabetes mellitus type 2, coagulopathy secondary to hepatic failure. HOSPITAL COURSE: The patient was admitted to the hospital to [facility] to the Hospitalist Service. On admission, he was noted to be in acute renal failure on chronic kidney disease, hyperkalemic, bilateral pleural effusions, respiratory failure, hypotension. He was started on dopamine, BiPAP. An emergency hemodialysis catheter was placed by Dr. Musa Looney on 04/08/2020. Dr. Mathieu Anaya, Nephrology was consulted. After dialysis, the patient's potassium dropped from 6.8 to 5.4. His blood pressure remained unstable. He was not a candidate for further dialysis. He was seen in consultation by Dr. Alonzo Christie, last turner. He was initially put on dopamine, but had to be changed to Levophed for blood pressure control. He was also put on broad-spectrum antibiotics, cefepime and vancomycin. The patient was seen by Palliative Care. The patient had an echocardiogram that showed excellent heart function, 55% to 60% LVEF on 04/09. Dr. Alonzo Christie had discussion with the family. They agreed to a DNR code status. BiPAP and vasopressors were stopped. He was moved DNR to the medical floor. This morning as I was making early rounds, the nurse on the floor asked me to see him, he was in agonal respirations at that time. I asked if his has been called and she said yes, and that she was on her way. When she arrived, I met with her. We discussed the situation. She agreed with palliative care, comfort measures only. As his appeared eminent, there was no discussion of transfer to hospice. At several times in the morning I checked on him, his respirations remained agonal. He eventually at 2:05 ceased respirations, was pronounced . Body will be released to the home. No autopsy was requested. It is important to note that this patient had longstanding multiple medical problems that terminated with cascading sequence of hepatic failure, 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 leading to renal failure, leading to volume overload, hypotension, inability to be dialyzed, large massive pleural effusions, and ascites. Job ID: [id number] MTDD
--- NOTE | 2020-04-12 12:07 | PQF ---
CLINICAL DOCUMENTATION CLARIFICATION FORM: Dear : Lyiah Sen Date / Time: 04/12/2020 Please exercise your independent, professional judgment in responding to the clarification form. Clinical indicators are provided on the bottom of this form for your review Please check appropriate box(es): Conflicting documentation was noted in the Medical Record; please clarify if patient is being treated/monitored for: [ ] Acute hepatic failure [ d ] Chronic hepatic failure [ ] Other diagnosis [ ] Unable to determine In addition, please specify: Present on Admission (POA): [ d ] Yes [ ] No [ ] Unable to determine To be completed by CDI/Coding staff for physician review: Present Clinical Indicators - Signs / Symptoms / Labs Results and Location in Medical Record [ x ] Hepatic failure, status is acute Progress note 04/10 by Liyah Sen MD [ x ] Bilateral pleural effusions due to hepatic failure Query response 04/10 by Liyah Sen MD [ x ] Final diagnoses: Acute respiratory failure, acute renal failure and chronic hepatic failure Discharge summary [ x ] It is important with note that this patient had longstanding multiple medical problems that terminated with cascading sequence of hepatic failure, 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 leading to renal failure, leading to volume overload and hypotension Discharge summary [ x ] PT is 24.5 and PTT is 84.6 on 04/08 Laboratory Present Risk Factors Results and Location in Medical Record [ x ] Acute renal failure, chronic liver tumor, chronic hepatic failure, diabetes and hypertension Progress note 04/08 by Liyah Sen MD Present Treatments Results and Location in Medical Record [ x ] PT, PTT and ammonia levels drawn Progress note 04/08 by Liyah Sen MD [ x ] Hemodialysis 04/07 Notes CDS/Conceptor Signature: [email or web address] Phone #: Date/Time: 04/12/2020 This is a permanent part of the Medical Record [facility]
--- NOTE | 2020-04-19 14:05 | EKG ---
Test Reason : Blood Pressure : / mmHG Vent. Rate : 060 BPM Atrial Rate : 054 BPM P-R Int : 000 ms QRS Dur : 168 ms QT Int : 534 ms P-R-T Axes : 000 -88 083 degrees QTc Int : 534 ms Ventricular-paced rhythm Abnormal ECG Confirmed by ESTELA MILTON ([id number]), associate entertainment editor TYREE RUBIN ([id number]) on 04/19/2020 2:04:57 PM Referred By: Confirmed By:ESTELA Ibrahim
== END 2020-04-10 14:05 | disposition expired | DRG 682 ==
LOC: ERS 16:42 → IMCU/EMU 19:11 → CCU 04-08 09:35 → ONC 04-09 18:44
PROVIDERS: ADMIT Internal Medicine; ATTEND Internal Medicine
PROC: 06HY33Z Insertion of Infusion Device into Lower Vein, Percutaneous Approach (ICD-10-PCS; principal; 2020-04-07)
PROC: 5A1D70Z Performance of Urinary Filtration, Intermittent, Less than 6 Hours Per Day (ICD-10-PCS; 2020-04-07)
PROC: 5A09457 Assistance with Respiratory Ventilation, 24-96 Consecutive Hours, Continuous Positive Airway Pressure (ICD-10-PCS; 2020-04-07)
PROC: 3E033XZ Introduction of Vasopressor into Peripheral Vein, Percutaneous Approach (ICD-10-PCS; 2020-04-08)
DX: N17.9 Acute kidney failure, unspecified (principal); J96.01 Acute respiratory failure with hypoxia; K76.7 Hepatorenal syndrome; J44.1 Chronic obstructive pulmonary disease with (acute) exacerbation; E87.2 Acidosis; Z66 Do not resuscitate; Z51.5 Encounter for palliative care; J90 Pleural effusion, not elsewhere classified; E27.40 Unspecified adrenocortical insufficiency; D68.4 Acquired coagulation factor deficiency; R18.8 Other ascites; Z20.828 Contact with and (suspected) exposure to other viral communicable diseases; I95.9 Hypotension, unspecified; E11.22 Type 2 diabetes mellitus with diabetic chronic kidney disease; K73.9 Chronic hepatitis, unspecified; E11.42 Type 2 diabetes mellitus with diabetic polyneuropathy; E87.5 Hyperkalemia; D49.0 Neoplasm of unspecified behavior of digestive system; N18.9 Chronic kidney disease, unspecified; K72.10 Chronic hepatic failure without coma; I12.9 Hypertensive chronic kidney disease with stage 1 through stage 4 chronic kidney disease, or unspecified chronic kidney disease; M19.90 Unspecified osteoarthritis, unspecified site; R57.8 Other shock; D63.1 Anemia in chronic kidney disease; Z96.652 Presence of left artificial knee joint; Z85.118 Personal history of other malignant neoplasm of bronchus and lung; Z85.21 Personal history of malignant neoplasm of larynx; Z95.0 Presence of cardiac pacemaker; Z87.891 Personal history of nicotine dependence; Z92.21 Personal history of antineoplastic chemotherapy; Z85.05 Personal history of malignant neoplasm of liver; Z92.3 Personal history of irradiation
CPT/HCPCS: 36415; 36416; 36556; 51701; 71045; 80048; 80202; 81003; 81015; 82140; 82805; 83605; 83735; 83880; 84100; 84484; 85025; 85610; 85730; 87040; 87086; 87340; 87635; 90935; 93005; 93306; 94640; 94660; 94760; 96365; 96367; 96374; 96375; G0257; J0692; J0696; J1265; J1642; J1644; J1815; J1940; J2001; J2920; J2930; J3370; J3490; J7611; J7620; P9047; U0003